=== PATIENT | male | born 1965 | race Caucasian/White ===

== ENCOUNTER 2020-06-07 19:10 | Emergency (ER) | payer OTHER ==
[~2020-06-07] VITALS: Ht 170.2 cm; Wt 54.5 kg
[2020-06-07] MEDS ORDERED: PERTUSS(ACELL),DIPH,TET VAC/PF 0.5 ML SYRINGE IM. ONE (22:15)
[2020-06-07 22:28] LABS: GLUCOSE,POINT OF CARE 99 MG/DL (70-110)
[2020-06-08 00:32] VITALS: BP 138/86
== END 2020-06-08 01:30 | disposition home or self-care (01) ==
LOC: EMS 19:12
DX: F11.20 Opioid dependence, uncomplicated (principal); F19.90 Other psychoactive substance use, unspecified, uncomplicated
CPT/HCPCS: 90715; 99282